=== PATIENT | female | born 1960 | race Caucasian/White ===

== ENCOUNTER 2017-10-07 13:20 | Inpatient (IN) | payer MEDICAID ==
[~2017-10-07] VITALS: Ht 167.6 cm; Wt 69.5 kg
[~2017-10-07 13:20] MED LIST: DEXA4TAB PO; ONDA4TAB12 PO; OXYC-306 PO
[2017-10-07] MEDS ORDERED: SODIUM CHLORIDE 0.9% 1,000ML IVBOLUS ONE (14:00)
[2017-10-07] MEDS ORDERED: SODIUM CHLORIDE FLUSH 10ML SYR IVF ONE (14:00)
[2017-10-07 14:41] LABS: HEMATOCRIT 43.8 % (34.6-47.8); HEMOGLOBIN 14.8 g/dL (11.7-16.4)
[2017-10-07 14:54] LABS: ASPARTATE AMINO TRANSFERASE 22 U/L (15-37); BLOOD UREA NITROGEN 17 mg/dL (7-18)
[2017-10-07 15:15] LABS: IS PT STATUS REG ER OR PRE ER? YES
[2017-10-07 16:08] LABS: DAU SCREEN DISCLAIMER
[2017-10-07] MEDS ORDERED: ONDANSETRON 2MG/ML, 2ML IVPush PRN (19:30)
[2017-10-07] MEDS ORDERED: ACETAMINOPHEN 325 MG TABLET PO PRN (19:30)
[2017-10-07] MEDS ORDERED: DIPHENHYDRAMINE 25 MG CAPSULE PO PRN (19:30)
[2017-10-07] MEDS ORDERED: HYDROmorphone 1 MG/ML, 1ML ONE (19:35)
[2017-10-07 19:59] VITALS: BP 122/75
[2017-10-07 20:21] VITALS: BP 120/75
[2017-10-07] MEDS: SODIUM CHLORIDE 0.9% 1,000 ML IV SCH (21:16)
[2017-10-08 02:06] VITALS: BP 99/63
[2017-10-08] MEDS: SODIUM CHLORIDE 0.9% 1,000 ML IV SCH ×3 (04:20→20:51)
[2017-10-08 05:15] LABS: BLOOD UREA NITROGEN 18 mg/dL (7-18)
[2017-10-08 07:05] VITALS: BP 109/69
[2017-10-08] MEDS ORDERED: MAGNESIUM SULFATE PMX 2GM/50ML 50 ML IV ONE (07:30)
[2017-10-08 12:40] VITALS: BP 131/55
[2017-10-08 18:54] VITALS: BP 127/72
[2017-10-09 00:36] VITALS: BP 133/83
[2017-10-09] MEDS: SODIUM CHLORIDE 0.9% 1,000 ML IV SCH ×2 (03:03→09:40)
[2017-10-09 05:12] LABS: BLOOD UREA NITROGEN 15 mg/dL (7-18)
[2017-10-09 06:55] VITALS: BP 130/88
== END 2017-10-09 11:48 | disposition home or self-care (01) | DRG 74 ==
LOC: ED 16:15 → EDIP 17:46 → 5SO 20:14
PROVIDERS: ADMIT Internal Medicine; ATTEND Family Medicine
DX: G90.9 Disorder of the autonomic nervous system, unspecified (principal); E87.2 Acidosis; T68.XXXA Hypothermia, initial encounter; I95.9 Hypotension, unspecified; E86.0 Dehydration; E86.1 Hypovolemia; F17.210 Nicotine dependence, cigarettes, uncomplicated; X31.XXXA Exposure to excessive natural cold, initial encounter; Z59.0 Homelessness; Z85.41 Personal history of malignant neoplasm of cervix uteri; Z92.21 Personal history of antineoplastic chemotherapy; Z92.3 Personal history of irradiation
CPT/HCPCS: 36415; 70450; 71010; 80048; 80053; 80307; 81003; 83605; 83735; 83880; 84100; 84484; 85025; 85610; 85730; 87324; 93005; 93306; 96360; G0479; J3475; J7030